=== PATIENT | male | born 1965 | race Caucasian/White ===

== ENCOUNTER 2021-09-16 20:17 | Emergency (ER) | payer MEDICAID ==
[~2021-09-16] VITALS: Ht 180.3 cm; Wt 99.8 kg
[2021-09-16 21:41] LABS: Urine WBC 4148 /hpf (0 - 3)
[2021-09-16 21:44] LABS: Urine Bacteria NONE SEEN /hpf (None Seen); Urine Blood 3+ /uL (Negative)
[2021-09-16 21:45] LABS: Urine Specific Gravity 1.015 (1.001-1.035)
[2021-09-17 01:25] LABS: Basophils # (auto) 0.2 10 ^3/uL (0-0.2); Basophils % (auto) 1.8 % (0.0-2.0); Eosinophils # (auto) 0.1 10 ^3/uL (0-0.8); Eosinophils % (auto) 0.9 % (0.0-7.0); Hematocrit 45.6 % (41.0-53.0); Hemoglobin 15.6 g/dL (13.5-17.5); Lymphocytes # (auto) 1.1 10 ^3/uL (0.4-5.4); Mean Corpuscular Hemoglobin 30.1 pg (28.0-32.0); Mean Corpuscular Hgb Conc. 34.1 g/dL (32.0-36.0); Mean Corpuscular Volume 88.1 fL (80.0-100.0); Monocytes # (auto) 0.6 10 ^3/uL (0-1.3); Monocytes % (auto) 4.4 % (0.0-12.0); Neutrophils # (auto) 11.6 10 ^3/uL (1.6-8.6); Neutrophils % (auto) 84.9 % (37.0-80.0); Red Blood Cells 5.17 10^6/uL (4.5-5.90); Red Cell Distribution Width 13.7 % (11.8-14.3); White Blood Cell 13.7 10^3/uL (4.4-10.8)
[2021-09-17 01:39] LABS: INR 0.98 (0.9-1.15)
[2021-09-17 01:43] LABS: Albumin 3.7 g/dL (3.4-5.0); BUN/Creatinine Ratio 14.3; Calcium 8.8 mg/dL (8.5-10.1); Potassium 4.2 mmol/L (3.5-5.1)
[2021-09-17 01:46] LABS: Bilirubin, Total 0.9 mg/dL (0.2-1.0); Total Protein 7.2 g/dL (6.4-8.2)
[2021-09-17] MEDS ORDERED: cefTRIAXone SOD 1,000 MG VL IM ONE (02:00)
[2021-09-17] MEDS ORDERED: CEPH-509 PO (02:22)
[2021-09-17] MEDS ORDERED: cefTRIAXone 1GM/50ML D5W 50 ML IV ONE (03:00)
[2021-09-17 03:30] VITALS: BP 128/86
== END 2021-09-17 03:42 | disposition home or self-care (01) ==
LOC: ER 20:25
DX: R31.9 Hematuria, unspecified (principal); F12.10 Cannabis abuse, uncomplicated; F15.10 Other stimulant abuse, uncomplicated; J45.909 Unspecified asthma, uncomplicated
CPT/HCPCS: 36415; 74176; 80053; 81001; 85025; 85610; 96365; 99285; J0696

== ENCOUNTER → 2021-10-19 | Emergency (ER) | payer MEDICAID ==
[~2021-10-19] VITALS: Ht 182.9 cm; Wt 90.7 kg
[~2021-10-19] MED LIST: CEPH-509 PO
[2021-10-19 07:41] VITALS: BP 127/95
== END | disposition left against medical advice (07) ==
LOC: ER 00:18
DX: L02.416 Cutaneous abscess of left lower limb (principal); Z53.21 Procedure and treatment not carried out due to patient leaving prior to being seen by health care provider